=== PATIENT | male | born 1970 | race Caucasian/White ===

== ENCOUNTER 2019-09-23 21:39 | Emergency (ER) | payer SELFPAY ==
[~2019-09-23] VITALS: Ht 175.3 cm; Wt 81.6 kg
[2019-09-23 21:43] VITALS: BP 146/77
== END 2019-09-23 22:23 | disposition left against medical advice (07) ==
LOC: MED 21:39
DX: R42 Dizziness and giddiness (principal); F20.9 Schizophrenia, unspecified; I10 Essential (primary) hypertension; Z59.0 Homelessness
CPT/HCPCS: 99283